=== PATIENT | male | born 1930 | race Caucasian/White ===

== ENCOUNTER 2016-09-19 10:02 | Day surgery (SDC) | payer MEDICARE, OTHER ==
--- NOTE | 2016-09-20 13:30 | GI Report ---
REFERRING PHYSICIAN: Dr. Flako Mason HITCHER: Viet Jaime MD PROCEDURE MEDICATION: Propofol as per anesthesia. INDICATIONS: This is an 86-year-old man who has been having some pain in his right lower quadrant and a change in bowel habits. He denies blood in the stool. He did have a colonoscopy 10 years ago. He does have diverticular disease of the colon. He says today with getting completely cleaned out, the pain is gone. He has had surgery for right and left inguinal hernias in the past and he kind of points down to the right inguinal region. On examination before the procedure, when he coughs, there may be an early recurrent hernia formation. PROCEDURE PERFORMED: Colonoscopy and polypectomy. PROCEDURE: An Olympus video colonoscope was advanced through the rectum and slowly advanced all the way to the cecum. He does have moderate to severe diverticular disease of the sigmoid and descending colon and some redundancy to get to the cecum. The appendiceal orifice and ileocecal valve looked normal, though we did not get in the terminal ileum. In the ascending colon, a 3 mm flat polyp was removed with a cold snare and submitted to pathology. Transverse colon showed some redundancy. Descending colon and sigmoid with scattered diverticular disease, moderate. There were a few diverticula even in his transverse and ascending colon. In the sigmoid, I do not see obvious diverticulitis. Retroflexion of the rectum was normal. Patient tolerated the procedure well. FINDINGS: 1. Moderate diverticular disease of his colon. 2. An atonic redundant colon. 3. A small flat polyp removed from his ascending colon. RECOMMENDATIONS: 1. I would add Metamucil or MiraLAX or Benefiber on a daily basis and see if that changes the pain. If the pain persists, a CAT scan of the abdomen and pelvis might be a consideration. 2. Again, pending the pathology of the polyp, if benign, he may not need his colon re-looked at again. If it is adenomatous, pending his health in 5 years, consideration of re-looking at that point, but depending on what health status he is in, whether one needs to re-look or not. cc: Dr. Flako RANGEL
== END 2016-09-19 10:03 ==
LOC: OPSURG 10:02
PROVIDERS: ATTEND Internal Medicine Gastroenterology
DX: R10.31 Right lower quadrant pain (principal); K57.30 Diverticulosis of large intestine without perforation or abscess without bleeding; Q43.8 Other specified congenital malformations of intestine; D12.2 Benign neoplasm of ascending colon
CPT/HCPCS: 45385; S1016

== ENCOUNTER 2016-11-30 08:29 | Outpatient (CLI) | payer MEDICARE, OTHER ==
[2016-11-30 09:13] LABS: eGFR (African) > 60; eGFR (Non-African) > 60
--- NOTE | 2016-11-30 15:15 | Diagnostic Imaging Report ---
ISMAEL JOHNSON [facility] [id number] [facility] [address] [id number] Report Submission Date: November 30, 2016 1:26:37 PM CDT Patient Study Name: COCO MONDRAGON Date: November 30, 2016 10:18:19 AM CDT Modality Type: CT\SR Gender: M Description: CT ABD & PELVIS W/ CON : 30 Institution: [facility] Physician: ISMAEL JOHNSON CT abdomen and pelvis with contrast Date of study: November 30, 2016 Comparison: 6 days earlier CLINICAL HISTORY: CT A/P WITH CONTRAST, CHRONIC INTERMITTENT RLQ ABD PAIN (Hx) / RLQ ABD PAIN (DICOM Hx) TECHNIQUE: 5 mm contiguous axial images of the abdomen and pelvis with IV contrast. With ; WATER/OMNI 300 & 94 CC OMNIPAQUE FINDINGS: Some left basilar are atelectasis remains. The cyst is again seen in the liver. Spleen is unremarkable. Another cyst is present in the right lobe of the liver which appears stable. The spleen and adrenal glands and pancreas are unremarkable. The kidneys enhance normally. No retroperitoneal mass. Again noted is extensive diverticulosis of the colon. Prostate gland is enlarged. Oral contrast fills the bowel normally and extends into the colon. Bilateral renal cysts are present.. There is no retroperitoneal mass or aneurysm. The appendix is normal. Lumbar spondylosis is present. IMPRESSION: Extensive diverticulosis. Negative appendix Renal cysts Lumbar spondylosis Enlarged prostate gland. Unchanged left lung base atelectasis Electronically signed on November 30, 2016 1:26:37 PM CDT by: Cj RANGEL
== END 2016-11-30 08:30 ==
LOC: RAD 08:29
PROVIDERS: ATTEND Family Medicine
DX: R10.31 Right lower quadrant pain (principal)
CPT/HCPCS: 36415; 74177; 80053; Q9966; A9698

== ENCOUNTER 2017-09-12 12:50 | Outpatient (CLI) | payer MEDICARE, OTHER | END 2017-09-12 13:00 | LOC: CARD 12:50 | PROVIDERS: ATTEND Internal Medicine Cardiovascular Disease | DX: I35.1 Nonrheumatic aortic (valve) insufficiency (principal) ==

== ENCOUNTER 2018-05-02 14:18 | Outpatient (CLI) | payer MEDICARE, OTHER ==
[2018-05-03 02:30] LABS: TOTAL PROTEIN 6.5 g/dL (6.0-8.5)
== END 2018-05-02 14:20 ==
LOC: LABRHC 14:18
PROVIDERS: ATTEND Family Medicine
DX: I10 Essential (primary) hypertension (principal); R01.1 Cardiac murmur, unspecified
CPT/HCPCS: 36415; 80053; 80061